=== PATIENT | male | born 1995 | race Caucasian/White ===

== ENCOUNTER → 2020-04-27 08:07 | Outpatient (CLI) | payer OTHER, SELFPAY ==
--- NOTE | 2020-04-27 | DI.RAD.S_ITS ---
PROCEDURE: XR HAND LT MIN 3V INDICATIONS: HAND PAIN TECHNIQUE: 3 views of the hand(s) acquired. COMPARISON: None. FINDINGS: Bones: No fractures or dislocations. Carpal bones are normally aligned. No suspicious bony lesions. Soft tissues: No suspicious soft tissue calcifications. IMPRESSION: No fracture. If the patient's pain or other symptoms persist, consider further evaluation with MRI Dictated by: Parish Pittman M.D. on 04/27/2020 at 9:09 Approved by: Parish Pittman M.D. on 04/27/2020 at 9:14
== END ==
PROVIDERS: Family Provider Family Medicine; PCP Family Medicine; Referring Provider Family Medicine; Visit Provider Family Medicine
DX: M79.642 Pain in left hand (principal)
CPT/HCPCS: 73130

== ENCOUNTER → 2020-11-23 11:44 | Outpatient (ROUT) | payer OTHER, SELFPAY ==
[2020-11-23 12:27] LABS: COVID19 -Nasal RAPID POSITIVE (Negative)
== END ==
PROVIDERS: Family Provider Family Medicine; PCP Family Medicine; Visit Provider Family Medicine
DX: U07.1 COVID-19 (principal)
CPT/HCPCS: 87635

== ENCOUNTER → 2021-02-17 11:09 | Outpatient (CLI) | payer OTHER, SELFPAY ==
--- NOTE | 2021-02-17 11:14 | DI.CT.S_ITS ---
PROCEDURE: CT ABDOMEN PELVIS W CON INDICATIONS: Unspecified acute appendicitis TECHNIQUE: After the administration of oral and intravenous contrast, axial sections were acquired from the lung bases to the pubic symphysis. Coronal and sagittal reformats were performed. For radiation dose reduction, the following was used: automated exposure control, adjustment of mA and/or kV according to patient size. COMPARISON:None. FINDINGS: Image quality: Excellent. Lung bases: Unremarkable. Heart: No significant findings. ABDOMEN: Liver: Unremarkable. Gallbladder: Is partially contracted Biliary ducts: Unremarkable. Pancreas: Unremarkable. Spleen: Unremarkable. Adrenal Glands: Unremarkable. Kidneys and Ureters: Unremarkable. Stomach and Bowel: Stomach, small bowel loops, and colon are unremarkable. There is an ovoid calcification within the right hemipelvis measuring 13 mm, in the expected facet any of the appendix. There is severe surrounding fat stranding as well as a small amount of adjacent fluid within the right pericolic gutter. Peritoneum: Small amount of free fluid in the pericolic gutter on the right as well as within the pelvis. No free air. Ventral Wall: No hernia. Abdominal Nodes: No retroperitoneal or mesenteric adenopathy by size criteria. Vessels: Aorta and inferior vena cava are normal in size. PELVIS: Pelvic Organs: Unremarkable. Bladder: Unremarkable. Pelvic Nodes: No enlarged lymph nodes. Miscellaneous: No inguinal hernias are seen. Bones: Unremarkable. IMPRESSION: 1. Findings consistent with ruptured appendicitis. Findings discussed with Dr. Boyd on 02/17/2021 at 12:20 hours. Dictated by: Patrick Yo M.D. on 02/17/2021 at 12:18 Approved by: Patrick Yo M.D. on 02/17/2021 at 12:21
[2021-02-17 11:44] LABS: Add Manual Diff / Slide Review NO; Basophils Absolute Auto 0 /uL (0-100); Basophils Percent Auto 0.2 % (0-2); Eosinophils Absolute Auto 600 /uL (0-450); Eosinophils Percent Auto 4.4 % (2-4); Hematocrit 43.9 % (41-53); Hemoglobin 15.3 g/dL (13.5-17.5); Lymphocytes Absolute Auto 2000 /uL (1100-4500); Lymphocytes Percent Auto 14.4 % (25-40); Mean Corpuscular HGB Conc 34.8 % (30-36); Mean Corpuscular Hemoglobin 30.9 PG (26-34); Mean Corpuscular Volume 88.9 fL (80-100); Monocytes Absolute Auto 700 /uL (0-900); Monocytes Percent Auto 5.3 % (3-14); Neutrophils Absolute Auto 10200 /uL (1500-7000); Neutrophils Percent Auto 75.7 % (50-75); Platelet Count 169 X10^3/uL (150-400); Red Blood Cell Count 4.94 X10^6/uL (4.5-5.9); Red Cell Distribution Width 12.1 % (11.6-14.8); White Blood Cell Count 13.5 X10^3/uL (4.5-11.0)
== END ==
PROVIDERS: Family Provider Family Medicine; PCP Family Medicine; Referring Provider Family Medicine; Visit Provider Family Medicine
DX: K35.80 Unspecified acute appendicitis (principal)
CPT/HCPCS: 36415; 74177; 85025; Q9967

== ENCOUNTER 2021-02-17 12:36 | Observation (INO) | payer OTHER, SELFPAY ==
[2021-02-17] VITALS (13 sets, daily range): BP systolic 116–148; BP diastolic 67–91; PULSE 83–102; RESP 12–97; TEMP 36.4–37.3; O2SAT 20–99; BMI 25.8
--- NOTE | 2021-02-17 | PATH_ITS ---
[facility] Accession Number: [id number] . 01 Material submitted: . appendix - APPENDIX . 02 Diagnosis: Appendix, Appendectomy: Mild acute appendicitis. No evidence of neoplasm. [facility] 02/22/2021 1655 Local . 02 Electronically signed: . Luis Enrique Robin MD, PhD, Pathologist NPI- [id number] . 01 Gross description: . The specimen is received in formalin, labeled appendix, and consists of a 6.0 cm in length by 0.6 cm in diameter vermiform appendix with an attached acevedo-yellow lobulated mesoappendix measuring 3.0 x 1.0 x 0.5 cm. The serosa is acevedo-pink and smooth. Sectioning reveals a acevedo mucosa and a lumen measuring 0.5 cm in diameter. The vermiform appendix is entirely submitted, to include the en face margin (blue), central cross-sections, and bisected tip in cassettes A1-A4. ([id number]) /FRR 02/22/2021 1330 Local . 02 Pathologist provided ICD-10: K35.80 . 02 CPT . 066846 Performed at: 01 [facility] [address] [facility], [place], [place] [id number] MD Jayesh Dumont MD Phone: [phone] Performed at: 02 [facility] [address] [place], [place] [id number] MD Jessica Lowe MD Phone: [phone]
[2021-02-17 13:03] LABS: Add Manual Diff / Slide Review NO; Basophils Absolute Auto 100 /uL (0-100); Basophils Percent Auto 0.6 % (0-2); Eosinophils Absolute Auto 500 /uL (0-450); Eosinophils Percent Auto 3.5 % (2-4); Hematocrit 45.4 % (41-53); Hemoglobin 15.7 g/dL (13.5-17.5); Lymphocytes Absolute Auto 2100 /uL (1100-4500); Lymphocytes Percent Auto 14.3 % (25-40); Mean Corpuscular HGB Conc 34.6 % (30-36); Mean Corpuscular Hemoglobin 30.6 PG (26-34); Mean Corpuscular Volume 88.4 fL (80-100); Monocytes Absolute Auto 800 /uL (0-900); Monocytes Percent Auto 5.2 % (3-14); Neutrophils Absolute Auto 11100 /uL (1500-7000); Neutrophils Percent Auto 76.4 % (50-75); Platelet Count 184 X10^3/uL (150-400); Red Blood Cell Count 5.13 X10^6/uL (4.5-5.9); Red Cell Distribution Width 12.2 % (11.6-14.8); White Blood Cell Count 14.6 X10^3/uL (4.5-11.0)
--- NOTE | 2021-02-17 13:10 | ED.ABDPAIN ---
HPI - Abdominal Pain General Chief Complaint: Abdominal Pain Stated Complaint: CT scan today/PCP sent to ER Time Seen by Provider: 02/17/21 12:53 History of Present Illness HPI narrative: Patient is a 25-year-old male who presents from clinic with outpatient workup for right lower quadrant pain including a CT that was done here which confirmed ruptured appendicitis. Patient states that he started having right lower quadrant pain yesterday which intensified last night however this morning it has improved but he still having it. He has pain with movement. No fever or chills. No nausea or vomiting. He ate at 9:00 a.m. yogurt with cheese and crackers. Related Data Allergies Allergy/AdvReac Type Severity Reaction Status Date / Time No Known Drug Allergies Allergy Verified 02/17/21 14:45 Review of Systems Review of Systems Narrative: GENERAL: Denies chills, fatigue, malaise, fever, sweats, travel HEENT: Denies sinus pain, ear pain, sore throat, difficulty swallowing, neck pain RESPIRATORY: Denies dyspnea, cough, wheezing, hemoptysis, sputum. CARDIOVASCULAR: Denies chest pain, palpitations, orthopnea, edema GASTROINTESTINAL: See HPI : Denies dysuria, frequency, incontinence, hematuria, urinary retention, flank pain. MUSCULOSKELETAL: Denies weakness, joint pain, or bony pain SKIN: No rash, no erythema, no pruritus NEUROLOGIC: Denies weakness, dizziness, headache, numbness, change in speech, confusion PSYCHIATRIC: No concerning psychosocial issues. 12 point review of systems is negative except for those stated above and HPI Patient History Medical History Right radial fracture Social History household members: spouse Smoking Status: Never smoker alcohol intake: current Exam Initial Vital Signs Initial Vital Signs: Vital Signs Temperature 98.2 F 02/17/21 13:08 Pulse Rate 99 H 02/17/21 13:08 Respiratory Rate 16 02/17/21 13:08 Blood Pressure 144/88 H 02/17/21 13:08 Pulse Oximetry 97 02/17/21 13:08 GENERAL: Well-appearing, well-nourished and in no acute distress. HEENT: Head atraumatic,EOMI, pupils reactive, face symmetric, moist mucous membranes CARDIOVASCULAR: Regular rate and rhythm without murmurs, rubs or gallops. RESPIRATORY: Breath sounds equal bilaterally, no wheezes rales or rhonchi. ABDOMEN: Soft, tender right lower quadrant no guarding or rebound EXTREMITIES: Normal range of motion, no clubbing or edema. Neurovascularly intact NEUROLOGICAL: Alert and oriented x4.Normal gait and speech. SKIN: Warm, dry, no laceration, no petechiae, no rashes or lesions. Course Orders Ordered: ED Orders 02/17/21 12:45 Complete Blood Count AUTO DIFF Stat Comprehensive Metabolic Panel Stat Lipase Stat 02/17/21 12:48 COVID19 - ADMIT (EMERGENCY OPERATOR swab/PCR) Stat 02/17/21 13:56 EKG-12 Lead Stat Acetaminophen (Acetaminophen 325 Mg Tablet) 650 mg PO Q6HR PRN PRN Reason: Pain, Mild (1-3) Last Admin: 02/17/21 19:34 Dose: 650 mg Documented by: CALLIE Enoxaparin Sodium (Enoxaparin 40 Mg/0.4 Ml Syringe) 40 mg SUBCUT DAILY RANJANA Gabapentin (Gabapentin 300 Mg Capsule) 300 mg PO BID RANJANA Lactated Ringer's (Lactated Ringers) 1,000 mls @ 84 mls/hr IV NOW ONE Stop: 02/18/21 04:26 Last Infusion: 02/17/21 18:26 Dose: 0 mls/hr Documented by: Admin: 02/17/21 16:30 Dose: 84 mls/hr Documented by: GUY Lactated Ringer's (Lactated Ringers) 1,000 mls @ 100 mls/hr IV CONT RANJANA Last Admin: 02/17/21 19:29 Dose: 100 mls/hr Documented by: CALLIE Ketorolac Tromethamine (Ketorolac 30 Mg/Ml Vial) 30 mg IV Q6HR PRN PRN Reason: Pain, Moderate (4-6) Stop: 02/22/21 18:11 Morphine Sulfate (Morphine 4 Mg/Ml Inj) 4 mg IV Q4HR PRN PRN Reason: Pain, Severe (7-10) Naloxone HCl (Naloxone 0.4 Mg/Ml Vial) 0.2 mg IV Q2MIN PRN PRN Reason: Opiate Reversal Ondansetron HCl (Ondansetron 4 Mg/2 Ml Inj) 4 mg IV Q4HR PRN PRN Reason: Nausea And Vomiting Oxycodone HCl (Oxycodone Ir 5 Mg Tablet) 10 mg PO Q6HR PRN PRN Reason: Pain, Moderate (4-6) Last Admin: 02/17/21 19:33 Dose: 10 mg Documented by: CALLIE Discontinued Medications Bupivacaine HCl (Bupivacaine 0.5% (Pf) Vial) 30 ml INJ NOW ONE Stop: 02/17/21 16:36 Last Admin: 02/17/21 16:36 Dose: 15 ml Documented by: SINDY Fentanyl (Fentanyl 100 Mcg/2 Ml Inj) 0 mcg IV Q5M PRN PRN Reason: Pain, Moderate (4-6) Last Admin: 02/17/21 17:58 Dose: 50 mcg Documented by: LENA Hydromorphone HCl (Hydromorphone 2 Mg Inj) 0 mg IV Q5M PRN PRN Reason: Pain, Severe (7-10) Last Admin: 02/17/21 17:52 Dose: 0.5 mg Documented by: LENA Piperacillin Sod/Tazobactam (Sod 4.5 gm/ Sodium Chloride) 100 mls @ 200 mls/hr IV NOW ONE Stop: 02/17/21 13:21 Last Infusion: 02/17/21 13:54 Dose: 0 mls/hr Documented by: Admin: 02/17/21 13:28 Dose: 200 mls/hr Documented by: TERRY Sodium Chloride (Normal Saline 0.9%) 1,000 mls @ 125 mls/hr IV CONT [facility] Last Infusion: 02/17/21 14:05 Dose: 125 mls/hr Documented by: Infusion: 02/17/21 13:54 Dose: 0 mls/hr Documented by: Admin: 02/17/21 13:29 Dose: 125 mls/hr Documented by: TERRY Lactated Ringer's (Lactated Ringers) 1,000 mls @ 42 mls/hr IV CONT RANJANA Last Admin: 02/17/21 18:26 Dose: Not Given Documented by: LENA Piperacillin Sod/Tazobactam (Sod 3.375 gm/ Sodium Chloride) 100 mls @ 25 mls/hr IV NOW ONE Stop: 02/17/21 16:35 Last Admin: 02/17/21 16:05 Dose: 25 mls/hr Documented by: SINDY Lorazepam (Lorazepam 2 Mg/Ml Inj) 0.25 mg IV NOW PRN PRN Reason: Anxiety Metoclopramide HCl (Metoclopramide 10 Mg/2 Ml Inj) 10 mg IV NOW PRN PRN Reason: Nausea And Vomiting Morphine Sulfate (Morphine 4 Mg/Ml Inj) 4 mg IV NOW ONE Stop: 02/17/21 13:21 Last Admin: 02/17/21 13:28 Dose: 4 mg Documented by: LALOM Ondansetron HCl (Ondansetron 4 Mg/2 Ml Inj) 4 mg IV NOW PRN PRN Reason: Nausea And Vomiting Oxycodone/Acetaminophen (Oxycodone/Acetaminophen 5/325 Tablet) 1 tab PO PACUNOW PRN PRN Reason: Mild or Moderate Pain Last Admin: 02/17/21 18:00 Dose: 1 tab Documented by: LENA Vital Signs Vital signs: Vital Signs - 8 hr 02/17/21 13:08 Temperature 98.2 F Pulse Rate 99 H Respiratory Rate 16 Blood Pressure 144/88 H Pulse Oximetry 97 MDM - Abdominal Pain Lab Data Result diagrams: 02/17/21 12:45 02/17/21 12:45 Labs: Lab Results 02/17/21 02/17/21 02/17/21 Range/Units 12:45 12:45 12:48 WBC 14.6 H (4.5-11.0) X10^3/uL RBC 5.13 (4.5-5.9) X10^6/uL Hgb 15.7 (13.5-17.5) g/dL Hct 45.4 (41-53) % MCV 88.4 (80-100) fL MCH 30.6 (26-34) PG MCHC 34.6 (30-36) % RDW 12.2 (11.6-14.8) % Plt Count 184 (150-400) X10^3/uL Neut % (Auto) 76.4 H (50-75) % Lymph % (Auto) 14.3 L (25-40) % [place] % (Auto) 5.2 (3-14) % Eos % (Auto) 3.5 (2-4) % Baso % (Auto) 0.6 (0-2) % Neut # (Auto) 97909 H (3993-1820) /uL Lymph # (Auto) 2100 (8150-2453) /uL [place] # (Auto) 800 (0-900) /uL Eos # (Auto) 500 H (0-450) /uL Baso # (Auto) 100 (0-100) /uL Sodium 138 (137-145) mmol/L Potassium 4.0 (3.4-5.1) mmol/L Chloride 99 (98-107) mmol/L Carbon Dioxide 27 (22-32) mmol/L BUN 13 (9-20) mg/dL Creatinine 0.77 (0.66-1.25) mg/dL Estimated GFR > 60.0 (>60) mL/min BUN/Creatinine Ratio 16.9 (6-22) Glucose 98 (70-100) mg/dL Calcium 10.4 H (8.4-10.2) mg/dL Total Bilirubin 0.6 (0.2-1.3) mg/dL AST 41 (17-59) IU/L ALT 53 H (<50) IU/L Alkaline Phosphatase 76 (38-126) U/L Total Protein 8.2 (6.3-8.2) g/dL Albumin 5.1 H (3.5-5.0) g/dL Globulin 3.1 (1.7-4.1) g/dL Albumin/Globulin Ratio 1.6 (1.0-2.8) Lipase 159 (23-300) U/L SARS-CoV-2 (PCR) Negative (Negative) Imaging Data CT scan - abdomen/pelvis: Radiologist's Impression: PROCEDURE: CT ABDOMEN PELVIS W CON INDICATIONS: Unspecified acute appendicitis TECHNIQUE: After the administration of oral and intravenous contrast, axial sections were acquired from the lung bases to the pubic symphysis. Coronal and sagittal reformats were performed. For radiation dose reduction, the following was used: automated exposure control, adjustment of mA and/or kV according to patient size. COMPARISON:None. FINDINGS: Image quality: Excellent. Lung bases: Unremarkable. Heart: No significant findings. ABDOMEN: Liver: Unremarkable. Gallbladder: Is partially contracted Biliary ducts: Unremarkable. Pancreas: Unremarkable. Spleen: Unremarkable. Adrenal Glands: Unremarkable. Kidneys and Ureters: Unremarkable. Stomach and Bowel: Stomach, small bowel loops, and colon are unremarkable. There is an ovoid calcification within the right hemipelvis measuring 13 mm, in the expected facet any of the appendix. There is severe surrounding fat stranding as well as a small amount of adjacent fluid within the right pericolic gutter. Peritoneum: Small amount of free fluid in the pericolic gutter on the right as well as within the pelvis. No free air. Ventral Wall: No hernia. Abdominal Nodes: No retroperitoneal or mesenteric adenopathy by size criteria. Vessels: Aorta and inferior vena cava are normal in size. PELVIS: Pelvic Organs: Unremarkable. Bladder: Unremarkable. Pelvic Nodes: No enlarged lymph nodes. Miscellaneous: No inguinal hernias are seen. Bones: Unremarkable. IMPRESSION: 1. Findings consistent with ruptured appendicitis. Findings discussed with Dr. Boyd on 02/17/2021 at 12:20 hours. Dictated by: Patrick Yo M.D. on 02/17/2021 at 12:18 MDM Narrative Medical decision making narrative: Dr. Rodríguez updated patient's symptoms test results will admit patient Discharge Plan Departure Patient Disposition: Admitted As Inpatient Clinical Impression: Acute appendicitis Qualifiers: Acute appendicitis type: with localized peritonitis Appendicitis gangrene presence: without gangrene Appendicitis perforation presence: with perforation Appendicitis abscess presence: without abscess Qualified Code(s): K35.32 - Acute appendicitis with perforation and localized peritonitis, without abscess Admit Date/Time: 02/17/21 13:27 Admit Provider: Jared Rodríguez
[2021-02-17 13:19] LABS: Alanine Aminotransferase 53 IU/L (<50); Albumin 5.1 g/dL (3.5-5.0); Albumin Globulin Ratio 1.6 (1.0-2.8); Alkaline Phosphatase 76 U/L (38-126); Aspartate Aminotransferase 41 IU/L (17-59); BUN Creatinine Ratio 16.9 (6-22); Bilirubin Total 0.6 mg/dL (0.2-1.3); Blood Urea Nitrogen 13 mg/dL (9-20); Calcium 10.4 mg/dL (8.4-10.2); Carbon Dioxide 27 mmol/L (22-32); Chloride 99 mmol/L (98-107); Estimated Glomerular Filt Rate > 60.0 mL/min (>60); Globulin 3.1 g/dL (1.7-4.1); Glucose 98 mg/dL (70-100); HEMOLYSIS < 15 (0-50); Lipase 159 U/L (23-300); Sodium 138 mmol/L (137-145); Total Protein 8.2 g/dL (6.3-8.2)
[2021-02-17] MEDS: MORPHINE 4 MG/ML INJ IV (13:28)
[2021-02-17] MEDS: PIPERACILLIN/TAZO 4.5 GM in SODIUM CHLORIDE 0.9% 100 ML 200 ML IV (13:28)
[2021-02-17] MEDS: SODIUM CHLORIDE 0.9% 1,000 ML 125 ML IV (13:29)
[2021-02-17 14:03] LABS: COVID19 - ADMIT (NP swab/PCR) Negative (Negative)
--- NOTE | 2021-02-17 14:34 | P.HP_ITS ---
History of Present Illness History of Present Illness Chief complaint: CT scan today/PCP sent to ER Narrative: Patient is a gentleman who developed lower abdominal pain about 2 days ago. It was across his lower abdomen but is now settled on the right lower quadrant. He has been anorexic to try to eat today at 9:00 a.m.. He has had no vomiting. He had a normal bowel movement this morning. No diarrhea. No prior history of the symptoms. 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 Patient History Medical History Right radial fracture Family & Social History Safety & Behavioral: Feels Safe in Current Yes Environment Been Physically Hurt or No Threatened By a Person Review of Systems Review of Systems Narrative: Patient denies any double vision pain is eyes earaches or sore throats. No cough cold or asthma. No tooth aches. No heart problems or chest pain. No black or bloody bowel movements. No seizures or blackouts. No history of kidney stones or blood in his urine. No unusual bruising or bleeding. Exam Vital Signs (past 8 hours): - 02/17/21 13:08 02/17/21 13:47 Temperature 98.2 F Pulse Rate 99 H 96 H Respiratory Rate 16 16 Blood Pressure 144/88 H 144/88 H Pulse Oximetry 97 99 Oxygen Delivery Method Room Air Narrative Exam Narrative: Cooperative in no apparent distress. Eyes nonicteric. Pupils are small but equal. Conjunctivae are pink. Oral mucosa is pink neck is supple there are no nodes in the neck or supraclavicular areas trachea is midline mobile thyroid is not enlarged lungs are clear to auscultation no rales or rhonchi heart regular rate and rhythm no murmur gallop percuss is equally bilateral no heave lift or thrill abdomen is scaphoid soft without hernia. There is tenderness across the lower abdomen with the most tenderness in the right lower quadrant. Mild voluntary guarding in the right lower quadrant. No CVA tenderness. Patient is alert and oriented. Speech rate and content are appropriate. Affect is a little flat. Patient is balding. Rather hirsute. Otherwise a healthy the muscular 25-year-old. Objective Labs Result Diagrams: 02/17/21 12:45 02/17/21 12:45 Labs: Laboratory Results - last 24 hr 02/17/21 02/17/21 02/17/21 12:45 12:45 12:48 WBC 14.6 H RBC 5.13 Hgb 15.7 Hct 45.4 MCV 88.4 MCH 30.6 MCHC 34.6 RDW 12.2 Plt Count 184 Neut % (Auto) 76.4 H Lymph % (Auto) 14.3 L [place] % (Auto) 5.2 Eos % (Auto) 3.5 Baso % (Auto) 0.6 Neut # (Auto) 11190 H Lymph # (Auto) 2100 [place] # (Auto) 800 Eos # (Auto) 500 H Baso # (Auto) 100 Sodium 138 Potassium 4.0 Chloride 99 Carbon Dioxide 27 BUN 13 Creatinine 0.77 Estimated GFR > 60.0 BUN/Creatinine Ratio 16.9 Glucose 98 Calcium 10.4 H Total Bilirubin 0.6 AST 41 ALT 53 H Alkaline Phosphatase 76 Total Protein 8.2 Albumin 5.1 H Globulin 3.1 Albumin/Globulin Ratio 1.6 Lipase 159 SARS-CoV-2 (PCR) Negative Assessment & Plan Assessment and plan (1) Acute appendicitis: Qualifiers: Acute appendicitis type: with localized peritonitis Appendicitis abscess presence: without abscess Appendicitis gangrene presence: without gangrene Appendicitis perforation presence: with perforation Qualified Code(s): K35.32 - Acute appendicitis with perforation and localized peritonitis, without abscess Status: Acute Assessment & Plan narrative: CT scan was reviewed. Patient is fecalith in the right lower quadrant. There was inflammation around his appendix. And see a great deal of free fluid. He may have perforation though it may be acute appendicitis. I talked to him about the operation including how it is done in the potential do an open procedure. Risks of bleeding infection which is increased because this is dealing with intestine and hernia were discussed with him. Restrictions postop discussed. All questions answered and will proceed later today.
--- NOTE | 2021-02-17 15:02 | PC.NURSE ---
patient arrived to unit, A/o x 3, ambulatory, denies abdominal pain except with palpation. IV abx infusing and finished, NS @ 125. VSS, 98% RA. Patient prepped for SXMD in to speak with patimeir, consent signed and in chart. Belongings except for cellphone and shoes sent with support person Vicenta, patient instructed to call before getting OOB, denies dizziness, lightheadedness, no N/V. NPO since 0900, last fluid estimated to be around 1000. Sx up to take patient to OR at 1508.
--- NOTE | 2021-02-17 15:17 | PM.PREOP ---
Pre-operative Note COVID-19 COVID-19 status: Negative Result date/Date tested (Pos, Neg/Pending): 02/17/21 Interval Note History & Physical reviewed/Exam performed by Physician: Yes Changes to H&P: No
[2021-02-17] MEDS: PIPERACILLIN/TAZO 3.375 GM in SODIUM CHLORIDE 0.9% 100 ML 25 ML IV (16:05)
[2021-02-17] MEDS: LACTATED RINGERS 1,000 ML 84 ML IV (16:30)
[2021-02-17] MEDS: BUPIVACAINE 0.5% (PF) VIAL 30 ML INJ (16:36)
--- NOTE | 2021-02-17 16:41 | SUR.OPER ---
Supine on padded OR bed, head on pillow, arms secured on padded arm boards at <90 degrees abduction, legs uncrossed, safety belt at thigh, tape over blanket over lower legs.
--- NOTE | 2021-02-17 17:42 | SUR.PHASEI ---
1730-Received to PACU after general anesthesia. Pt requiring chin lift for adequate ventilation. Placed on 2LNC for sats 87% - up to 95%. Report from Dr Begum and STEFANY Alonzo. 1735 - 90mm oral airway placed without difficulty.
[2021-02-17] MEDS: HYDROMORPHONE 2 MG INJ IV (17:52)
[2021-02-17] MEDS: fentaNYL 100 MCG/2 ML INJ IV (17:58)
[2021-02-17] MEDS: OXYCODONE/ACETAMINOPHEN 5/325 TABLET 1 TAB PO (18:00)
--- NOTE | 2021-02-17 18:01 | P.OP_ITS ---
Operative Date/Time/Diagnoses Date of procedure: 02/17/21 Time of procedure: 18:01 Pre-op diagnosis: Acute appendicitis. Possible perforation. Post-op diagnosis: same (Acute appendicitis. I do not believe the patient was perforated.) Procedure & Clinicians Procedure: Laparoscopic appendectomy Same procedure as scheduled: Yes Indications: Signs symptoms and findings consistent with appendicitis. Surgeon: Jared Rodríguez Click Yes if Unassisted: Yes Anesthesia Type: General Operative Notes Findings: Acute appendicitis Closure Type: primary Specimen(s): other (Appendix) Estimated Blood Loss (mL): 5 Blood products transfused: none Procedure in detail: The patient was placed supine on the operating room table underwent general endotracheal anesthesia. He was prepped and draped in the usual fashion. Curvilinear incision was made beneath the umbilicus after infiltrating local anesthetic. This carried down under direct vision in the peritoneal cavity. Stay sutures of 0 Vicryl were placed in the fascia. A 12 mm port was inserted and secured. Two additional ports were placed. One in is in the lower abdomen above the pubis and the other in the left lower quadrant. The patient was repositioned on the table and the appendix readily identified. It was curled around itself and appeared to be mildly inflamed. It was elevated and the mesoappendix was divided. This was thickened. The base of the appendix was identified and cleared a loop placed over it. It was cinched down and appeared to be at the junction with the cecum. The distal portion and a crushing clamp placed on it and the appendix was divided using cautery. It was immediately placed in a bag without spillage. Was removed without difficulty. The right gutter and pelvis were irrigated and suctioned free of fluid. There was no ongoing bleeding and everything looked fine. Ports were all removed. The stay sutures were tied at the umbilicus after placing a 2 0 PDS between the two 0 Vicryl sutures. All 3 sutures were tied. Wounds were all irrigated. 4- 0 Vicryl subcuticular stitches were used to close the skin along with Mastisol and Steri-Strips. Patient tolerated the procedure well and was awakened and taken the recovery room good condition. I normally place a Starkey preoperatively. I noticed that the nursing staff seemed to be having difficulty placing the Starkey. I attempted to do so and hit what felt like an narrowing. I did not force this. I obtained a small could a catheter but I could not pass it either. I decided to proceed with out a Starkey and be very cautious about injuring the bladder. Complications: none Post-operative Condition: stable Disposition: PACU
--- NOTE | 2021-02-17 18:13 | SUR.PHASEI ---
Oral airway out at 1740 without difficulty. Pt awake and alert.
--- NOTE | 2021-02-17 18:36 | SUR.PHASEI ---
Report called to STEFANY Bull. Pt transferred to room 221 by STEFANY Deras and STEFANY Alonzo.
[2021-02-17] MEDS: LACTATED RINGERS 1,000 ML 100 ML IV (19:29)
[2021-02-17] MEDS: OXYCODONE IR 5 MG TABLET 10 MG PO (19:33)
[2021-02-17] MEDS: ACETAMINOPHEN 325 MG TABLET 650 MG PO (19:34)
--- NOTE | 2021-02-17 19:37 | PC.NURSE ---
Patient arrived from PACU A&OX4, able to make needs known. RA THACKER, reports Last BM @4369 02/17/21. due to void, Patient ambulated to BR with steady gait and no increase in pain. patient did void in urinal 350 ml clear jamila urine. Patient did report mild burning with urination. Informed patient of failed attempts to place catheter. Patient stated that the surgeon had already informed him. Patient instructed to save all urine for documentation and to alert nurse with any further progression of symptoms 3 lap sites with bandaids CDI. Pt reports moderate pain medicated with tylenol 650mg & oxycodone 10 mg with good relief pt tolerated sandwhich and fluids
[2021-02-17] MEDS: GABAPENTIN 300 MG CAPSULE PO (20:11)
[2021-02-18] MEDS: OXYCODONE IR 5 MG TABLET 10 MG PO ×2 (05:24→11:12)
[2021-02-18] MEDS: LACTATED RINGERS 1,000 ML 100 ML IV (05:25)
[2021-02-18 06:00] VITALS: BP 125/68; PULSE 87; RESP 16; TEMP 35.8; O2SAT 98
[2021-02-18 06:35] LABS: Add Manual Diff / Slide Review NO; Basophils Absolute Auto 0 /uL (0-100); Eosinophils Absolute Auto 0 /uL (0-450); Hematocrit 43.5 % (41-53); Lymphocytes Absolute Auto 700 /uL (1100-4500); Lymphocytes Percent Auto 4.9 % (25-40); Mean Corpuscular HGB Conc 34.3 % (30-36); Mean Corpuscular Hemoglobin 30.6 PG (26-34); Mean Corpuscular Volume 89.1 fL (80-100); Monocytes Absolute Auto 300 /uL (0-900); Monocytes Percent Auto 2.4 % (3-14); Neutrophils Absolute Auto 12900 /uL (1500-7000); Neutrophils Percent Auto 92.7 % (50-75); Platelet Count 163 X10^3/uL (150-400); Red Blood Cell Count 4.89 X10^6/uL (4.5-5.9); Red Cell Distribution Width 11.9 % (11.6-14.8); White Blood Cell Count 13.9 X10^3/uL (4.5-11.0)
[2021-02-18 08:08] VITALS: BP 137/81; PULSE 79; RESP 20; TEMP 36.1; O2SAT 98
[2021-02-18] MEDS: ENOXAPARIN 40 MG/0.4 ML SYRINGE SUBCUT (08:53)
[2021-02-18] MEDS: ACETAMINOPHEN 325 MG TABLET 650 MG PO (08:53)
[2021-02-18] MEDS: GABAPENTIN 300 MG CAPSULE PO (08:53)
[2021-02-18] MEDS: KETOROLAC 30 MG/ML VIAL IV (10:03)
--- NOTE | 2021-02-18 10:18 | PC.NURSE ---
Addendum entered by Juliette De Jesus R.N. 02/18/21 11:38: Patient medicated with 10mg of oxycodone prior to discharge at 1130. Down to car with , escorted out by this RN. Original Note: Patient just given toradol iv for 5/10 pain to lower abdomen. Patient showered and three large bandaides changed to incisions. He tolerated this well. is going to come and pick patient up soon to go home.
--- NOTE | 2021-02-18 11:04 | CM.DANOTE ---
DCP Discharge Home Patient is a 25 yo male who was admitted on 02/17/21 for Abd Pain. Pt has [employer] for insurance and his PCP is Celestina Boyd. EMR was reviewed. Per Surgeon, pt admitted for acute appendicitis with possible perforation. Pt went to surgery on day of admission for Lap Appe and did not appear to have perforated. Per Surgeon, pt tolerated procedure well and stable for d/c home today with outpt follow up. Per RN, pt ambulated in room with steady gait, tolerated diet, and was able to independently void. No concerns at this time and Sig Other to arrive bedside to provide transport home. Pt is agreeable with plan of d/c home today and is active and independent at baseline and works at [employer]. Plan: Patient to d/c home today with no identified barriers to discharge and no SW needs at this time. Pt has transport home and outpt follow up with Surgeons office. ROME Melton
== END 2021-02-18 11:30 | disposition home or self-care (01) ==
LOC: ED 13:26 → AC 13:36
PROVIDERS: Admitting Provider Specialist; Emergency Provider Emergency Medicine; Family Provider Family Medicine; PCP Family Medicine; Referring Provider Emergency Medicine; Visit Provider Specialist
PROC: 0DTJ4ZZ Resection of Appendix, Percutaneous Endoscopic Approach (ICD-10-PCS; CPT 44970; principal; 2021-02-17 16:00)
DX: K35.80 Unspecified acute appendicitis (principal); Z20.822 Contact with and (suspected) exposure to COVID-19
CPT/HCPCS: 44970; 36415; 74177; 80053; 83690; 85025; 87635; 93005; 93010; 96361; 96365; 96372; 96375; 99220; 99284; C9803; G0378; J1100; J1170; J1650; J1885; J2250; J2270; J2405; J2543; J2704; J3010; Q9967

== ENCOUNTER → 2023-01-23 13:45 | Outpatient (ROUT) | payer OTHER, SELFPAY ==
[2021-02-20 10:18] VITALS: BMI 25.8
[2023-01-23 14:02] LABS: Add Manual Diff / Slide Review NO; Basophils Absolute Auto 0 /uL (0-100); Basophils Percent Auto 0.4 % (0-2); Eosinophils Absolute Auto 400 /uL (0-450); Eosinophils Percent Auto 6.3 % (2-4); Hematocrit 48.2 % (41-53); Hemoglobin 16.5 g/dL (13.5-17.5); Lymphocytes Absolute Auto 1900 /uL (1100-4500); Lymphocytes Percent Auto 30.7 % (25-40); Mean Corpuscular HGB Conc 34.3 % (30-36); Mean Corpuscular Hemoglobin 31.7 PG (26-34); Mean Corpuscular Volume 92.3 fL (80-100); Monocytes Absolute Auto 300 /uL (0-900); Monocytes Percent Auto 4.8 % (3-14); Neutrophils Absolute Auto 3500 /uL (1500-7000); Neutrophils Percent Auto 57.8 % (50-75); Platelet Count 200 X10^3/uL (150-400); Red Blood Cell Count 5.22 X10^6/uL (4.5-5.9); Red Cell Distribution Width 12.6 % (11.6-14.8); White Blood Cell Count 6.1 X10^3/uL (4.5-11.0)
[2023-01-23 14:23] LABS: Alanine Aminotransferase 56 IU/L (<50); Albumin Globulin Ratio 1.7 (1.0-2.8); Alkaline Phosphatase 95 U/L (38-126); Aspartate Aminotransferase 53 IU/L (17-59); BUN Creatinine Ratio 18.8 (6-22); Bilirubin Total 0.6 mg/dL (0.2-1.3); Blood Urea Nitrogen 15 mg/dL (9-20); Calcium 10.5 mg/dL (8.4-10.2); Carbon Dioxide 24 mmol/L (22-32); Chloride 102 mmol/L (98-107); Estimated Glomerular Filt Rate > 60 mL/min (>60); Globulin 2.9 g/dL (1.7-4.1); Glucose 96 mg/dL (70-100); HEMOLYSIS 38 (0-50); Potassium 4.2 mmol/L (3.4-5.1); Sodium 139 mmol/L (137-145); Total Protein 7.9 g/dL (6.3-8.2)
[2023-01-23 14:53] LABS: Prostate Specific Antigen 0.631 ng/mL (0.10-4.00)
[2023-01-23 14:56] LABS: Testosterone 409 ng/dL (132-813)
[2023-01-29 13:24] LABS: Estrogen 103 pg/mL (56-213)
== END ==
PROVIDERS: Family Provider Family Medicine; PCP Family Medicine; Visit Provider Family Medicine
DX: E34.9 Endocrine disorder, unspecified (principal); Z79.890 Hormone replacement therapy
CPT/HCPCS: 80053; 82672; 84153; 84403; 85025

== ENCOUNTER 2024-03-17 20:12 | Emergency (ER) | payer OTHER, SELFPAY ==
[2021-02-20 10:18] VITALS: BMI 25.8
[2024-03-17 20:18] VITALS: BP 131/76; PULSE 99; RESP 18; TEMP 36.7; O2SAT 97; BMI 26.6
--- NOTE | 2024-03-17 21:04 | DI.RAD.S_ITS ---
PROCEDURE: XR FOOT LT MIN 3V INDICATIONS: cut base of great toe eval for FB TECHNIQUE: 3 views of the foot were acquired. COMPARISON: None. FINDINGS: Bones: No fractures or dislocations. No suspicious bony lesions. Soft tissues: No tibiotalar joint effusion. Achilles tendon appears normal. Significant soft tissue swelling of the 1st digit. No radiopaque foreign bodies are identified. IMPRESSION: First digit soft tissue swelling. No radiopaque foreign bodies are identified. Dictated by: Beck Olivares M.D. on 03/17/2024 at 21:40 Approved by: Beck Olivares M.D. on 03/17/2024 at 21:41
--- NOTE | 2024-03-17 21:04 | ED.WOUNDLAC ---
HPI - Wound/Laceration General Chief Complaint: Wound/Laceration Stated Complaint: lt foot cut on porcelin Time Seen by Provider: 03/17/24 20:59 Source: patient Mode of arrival: Wheelchair History of Present Illness HPI narrative: Patient is a 28-year-old male here for evaluation of a cut to the bottom of his left foot at the base of the left great toe. He states he cut it on a piece of porcelain from a toilet. He was up-to-date his tetanus. Tried to control some of the bleeding at home without improvement. No other injuries from the event. Related Data Previous Rx's Medication Instructions Recorded oxycodone 5 mg tablet See Rx Instructions .Route 02/17/21 .COMPLEX PRN painful procedure #14 tabs Allergies Allergy/AdvReac Type Severity Reaction Status Date / Time No Known Drug Allergies Allergy Verified 02/23/21 14:44 Review of Systems Constitutional Constitutional: Reports system reviewed and no additional complaints, except as documented Musculoskeletal Musculoskeletal: Reports system reviewed and no additional complaints, except as documented Integumentary/Breasts Skin/Breast: Reports system reviewed and no additional complaints, except as documented Neurologic Neurologic: Reports system reviewed and no additional complaints, except as documented Patient History Medical History Right radial fracture Social History household members: spouse Smoking Status: Never smoker alcohol intake: current Smoking Status: Never smoker alcohol intake frequency: a few times a week Substance Use Type: does not use Exam Initial Vital Signs Initial Vital Signs: Vital Signs Temperature 98.1 F 03/17/24 20:18 Pulse Rate 99 H 03/17/24 20:18 Respiratory Rate 18 03/17/24 20:18 Blood Pressure 131/76 03/17/24 20:18 Pulse Oximetry 97 03/17/24 20:18 Oxygen Delivery Method Room Air 03/17/24 20:18 Skin Other: Patient with a 3 cm laceration on the bottom of his left foot at the base of the great toe. Extrem Other: Cut the bottom of the left great toe Procedures Laceration Repair Laceration 1: Site: other (Foot) Side (If applicable): left Size (cm): 3 Description: linear Depth: simple, single layer Local Anesthetic: lidocaine 1% Amount of anesthesia used (mL): 8 Pre-repair: wound explored, irrigated extensively and deep structures intact Skin layer closed with: nylon Skin layer suture size: 4-0 Number of sutures: 7 Technique: simple, interrupted Course Orders Ordered: ED Orders 03/17/24 21:04 XR foot LT min 3V Stat Discontinued Medications Ondansetron HCl (Ondansetron 4 Mg Odt) 4 mg SL NOW ONE Stop: 03/17/24 22:04 Last Admin: 03/17/24 22:07 Dose: 4 mg Documented By: TONEY Vital Signs Vital signs: Vital Signs - 8 hr 03/17/24 20:18 03/17/24 23:46 Temperature 98.1 F Pulse Rate 99 H 70 Respiratory Rate 18 16 Blood Pressure 131/76 128/74 Pulse Oximetry 97 100 Oxygen Delivery Method Room Air Room Air [facility] - Wound/Laceration Imaging Data Extremity x-ray #1: Radiologist's Impression: PROCEDURE: XR FOOT LT MIN 3V INDICATIONS: cut base of great toe eval for FB TECHNIQUE: 3 views of the foot were acquired. COMPARISON: None. FINDINGS: Bones: No fractures or dislocations. No suspicious bony lesions. Soft tissues: No tibiotalar joint effusion. Achilles tendon appears normal. Significant soft tissue swelling of the 1st digit. No radiopaque foreign bodies are identified. IMPRESSION: First digit soft tissue swelling. No radiopaque foreign bodies are identified. [facility] Narrative Medical decision making narrative: Up-to-date on tetanus. Laceration was closed as described above. No foreign bodies noted. Deep structures intact. Patient was given care instructions and return precautions. He expressed understanding and agreement with the plan. Discharge Plan Departure Patient Disposition: Home Clinical Impression: Laceration Instructions: DI for Laceration Repair Activity Restrictions/Additional Instructions: The stitches that were placed today are not absorbable. They will need to be removed in approximately 10 days. After 24 hours you can remove the bandage that was placed today. You can then shower like normal. Do not soak your foot in anything into the stitches have healed. Return to the emergency department for new or worsening symptoms. Prescriptions: No Action oxycodone 5 mg tablet See Rx Instructions .ROUTE .COMPLEX PRN (Reason: painful procedure) Qty: 14 0RF Rx Instructions: Take 1 or 2 pills every 6 hours if needed for pain. May constipate. Referrals: Celestina Boyd MD [Primary Care Provider] - Stand Alone Forms: Patient Portal/API
[2024-03-17] MEDS: ONDANSETRON 4 MG ODT SL (22:07)
--- NOTE | 2024-03-17 23:27 | PC.NURSE ---
laceration sutured with gauze, and rashawn wrap applied per Dr Clemons
[2024-03-17 23:46] VITALS: BP 128/74; PULSE 70; RESP 16; O2SAT 100
== END 2024-03-17 23:47 | disposition home or self-care (01) ==
PROVIDERS: Emergency Provider Emergency Medicine; Family Provider Family Medicine; PCP Family Medicine
DX: S91.312A Laceration without foreign body, left foot, initial encounter (principal); W26.8XXA Contact with other sharp object(s), not elsewhere classified, initial encounter
CPT/HCPCS: 12002; 73630; 99283